=== PATIENT | female | born 1990 | race Asian ===

== ENCOUNTER 2023-06-13 21:18 | Emergency (ER) | payer OTHER ==
[~2023-06-13] VITALS: Ht 160 cm; Wt 43.1 kg
[2023-06-13 22:00] VITALS: TEMP 98.5
[2023-06-13 22:38] LABS: BASOPHILS # (AUTO) 0.1 K/uL (0.0-0.2); BASOPHILS % (AUTO) 1.2 % (0.0-2.0); EOSINOPHILS # (AUTO) 0.2 K/uL (0.0-0.7); EOSINOPHILS % (AUTO) 3.4 % (0.0-6.0); HEMATOCRIT 38 % (33-45); HEMOGLOBIN 12.5 g/dL (11.5-14.8); LYMPHOCYTES # (AUTO) 1.9 K/uL (0.8-4.8); LYMPHOCYTES % (AUTO) 33.5 % (20.0-44.0); MEAN CORPUSCULAR HEMOGLOBIN 29 PG (26.0-33.0); MEAN CORPUSCULAR HGB CONC 33 g/dl (31.0-36.0); MEAN CORPUSCULAR VOLUME 87 fL (82-100); MONOCYTES # (AUTO) 0.5 K/uL (0.1-1.30); MONOCYTES % (AUTO) 8.2 % (2.0-12.0); NEUTROPHILS # (AUTO) 3.1 K/uL (1.8-8.9); NEUTROPHILS % (AUTO) 53.7 % (43.0-81.0); PLATELET COUNT (AUTO) 268 K/uL (150-450); RED BLOOD CELL COUNT(AUTO) 4.31 MIL/uL (4.0-5.2); RED CELL DISTRIBUTION WIDTH 15.6 % (11.5-15.0); WHITE BLOOD COUNT (AUTO) 5.7 K/uL (4.3-11.0)
[2023-06-13 22:51] LABS: CALCIUM, SERUM 9.2 mg/dL (8.5-10.1); CREATININE 0.6 mg/dL (0.6-1.3); POTASSIUM 3.5 mmol/L (3.5-5.1)
[2023-06-13 23:01] LABS: THYROID STIMULATING HORMONE 1.831 uIU/mL (0.358-3.74)
[2023-06-13 23:39] VITALS: BP 120/68; O2SAT 99
== END 2023-06-13 23:40 | disposition home or self-care (01) ==
LOC: ER 21:20
DX: R00.2 Palpitations (principal); R10.2 Pelvic and perineal pain
CPT/HCPCS: 36415; 80048-TC; 84443-TC; 84702-TC; 85025-TC